=== PATIENT | female | born 1975 | race Two or more races ===

== ENCOUNTER 2018-10-28 11:14 | Outpatient (CLI) | payer OTHER | END 2018-10-28 11:17 | disposition home or self-care (01) | LOC: MAMO-SONO 11:14 | DX: Z12.31 Encounter for screening mammogram for malignant neoplasm of breast (principal); N63.10 Unspecified lump in the right breast, unspecified quadrant; N63.20 Unspecified lump in the left breast, unspecified quadrant; N64.4 Mastodynia; N60.11 Diffuse cystic mastopathy of right breast ==

== ENCOUNTER → 2018-12-07 | Day surgery (SDC) | payer OTHER | END | disposition home or self-care (01) | LOC: CIR.AMB 06:49 | DX: N84.0 Polyp of corpus uteri (principal) ==

== ENCOUNTER 2023-08-04 09:14 | Outpatient (CLI) | payer OTHER | END 2023-08-04 09:21 | disposition home or self-care (01) | LOC: SONOGRAMA 09:14 | PROVIDERS: ATTEND Internal Medicine Gastroenterology | DX: R10.11 Right upper quadrant pain (principal) ==